=== PATIENT | female | born 2000 | race Caucasian/White ===

== ENCOUNTER 2019-06-11 02:11 | Emergency (ER) | payer OTHER, MEDICAID ==
[2019-06-11 02:40] LABS: Absolute Neutrophil Ct (ANC) 7.01 (1.4-6.9); BASOPHIL % 0.2 % (0.0-0.4); Basophil (Absolute #) 0.02 (0-0.4); Eosinophil % 1.1 % (0.00-5.0); Eosinophil (Absolute #) 0.11 (0-0.5); Hematocrit 40.4 % (35-47); Hemoglobin 13.8 gm/dl (12.0-16.0); Lymphocyte (Absolute #) 2.32 (1.0-4.6); Mean Cell Volume 81.1 fl (78-100); Mean Corpuscular Hemoglobin 27.7 pg (26-32); Mean Corpuscular Hgb Concent. 34.2 g/dl (32-36); Mean Platelet Volume 8.9 fl (6-9.5); Monocyte (Absolute #) 0.64 (0.0-1.3); Monocytes % 6.3 % (0.0-12.0); Neutrophil % 69.4 % (36.0-66.0); Platelet Count 284 K/mm3 (150-450); Red Blood Count 4.98 M/mm3 (4.1-5.4); Red Cell Distribution Width 13.4 % (11.5-14.0); White Blood Count 10.1 K/mm3 (4.0-10.5)
[2019-06-11 02:48] LABS: Appearance SLIGHTLY CLOUDY (CLEAR); Bilirubin NEGATIVE (NEGATIVE); Blood SMALL Ery/ul (0-5); Epithelial Cells RARE /HPF (FEW); Glucose NEGATIVE (NEGATIVE); Ketones NEGATIVE (NEGATIVE); Leukocyte Esterase TRACE (NEGATIVE); Mucus SLIGHT /HPF (NEGATIVE); Nitrite NEGATIVE (NEGATIVE); Protein,Urine Dip NEGATIVE (Negative); RBC 0-2 /HPF (0-2); Specific Gravity 1.014 (1.005-1.025); Urobilinogen NEGATIVE mg/dL (0-1)
--- NOTE | 2019-06-11 02:48 | ERPHSYRPT ---
- History of Present Illness Time Seen by Provider: 06/11/19 02:20 Source: police Exam Limitations: no limitations Patient Subjective Stated Complaint: Pt states, "I'm getting really frustrated, lots of stress: I don't make enough money, my dad is getting , my mom doesn't do shit and my boyfriend lost his job about a month ago". Triage Nursing Assessment: PT ARRIVED VIA POLICE, WILLINGLY, TO RM 3. PT ALERT AND ORIENTED X3, PLEASANT AND COOPERATIVE. PT DEPRESSED AND HAS ALOT OF STRESS GOING ON IN HER LIFE, HAD SUICIDAL IDEATIONS TONIGHT ([place] LUNGS CLEAR, HEART TONES REG, ABD SOFT WITH ACTIVE BSX4 QUAD, NON-TENDER. Physician History: As noted by INDER and 's Jasper - depressed - suicidal ideation - voiced plan - ID by Jasper. Allergies/Adverse Reactions: ibuprofen Adverse Reaction (Severe, Verified 06/11/19 02:34) INTESTINAL BLEEDING INTESTINAL BLEEDING Home Medications: Buspirone HCl [Buspar] 15 mg PO TIDPRN PRN 06/11/19 [History] Lisdexamfetamine Dimesylate [Vyvanse] 70 mg PO DAILY 06/11/19 [History] Trazodone HCl 50 mg PO QHS 06/11/19 [History] Vilazodone HCl [Viibryd] 40 mg PO DAILY 06/11/19 [History] Hx Tetanus, Diphtheria Vaccination/Date Given: Yes Hx Influenza Vaccination/Date Given: No Hx Pneumococcal Vaccination/Date Given: No Immunizations Up to Date: Yes - Past Medical History Pertinent Past Medical History: Yes Neurological History: Other ENT History: No Pertinent History Cardiac History: No Pertinent History Respiratory History: Asthma Endocrine Medical History: No Pertinent History Musculoskeletal History: No Pertinent History GI Medical History: GERD, Gallbladder Disease, Hemorrhoids History: No Pertinent History Psycho-Social History: Anxiety, Attention Deficit Disorder, Depression, Other Female Reproductive Disorders: No Pertinent History Other Medical History: PTSD, DISASSOCIATIVE DISORDER - Past Surgical History Past Surgical History: Yes Neuro Surgical History: No Pertinent History Cardiac: No Pertinent History Respiratory: No Pertinent History Gastrointestinal: Cholecystectomy Genitourinary: No Pertinent History Musculoskeletal: No Pertinent History Female Surgical History: No Pertinent History Other Surgical History: 2 COLONOSCOPY. 1 ENDOSCOPY - Social History Smoking Status: Current every day smoker How long have you smoked: 5 yrs Exposure to second hand smoke: No Drug Use: none Patient Lives Alone: No - Female History Hx Last Menstrual Period: 06/08/19 Hx Now: No - Nursing Vital Signs Nursing Vital Signs: Initial Vital Signs Temperature 99.3 F 06/11/19 02:13 Pulse Rate 115 H 06/11/19 02:13 Respiratory Rate 17 06/11/19 02:13 Blood Pressure 151/94 06/11/19 02:13 O2 Sat by Pulse Oximetry 100 06/11/19 02:13 Pain Scale Pain Intensity 0 - Physical Exam General Appearance: no apparent distress Eyes, Ears, Nose, Throat Exam: normal ENT inspection Neck Exam: normal inspection Respiratory Exam: normal breath sounds, lungs clear, airway intact, No respiratory distress Cardiovascular Exam: regular rate/rhythm, normal heart sounds, normal peripheral pulses Gastrointestinal/Abdominal Exam: soft Extremities Exam: normal inspection, normal range of motion Current Suicidality: other (stated via text to bofriend and verbally to Jasper) Neurological Exam: alert, normal mood/affect, calm, oriented x 3 Appearance: appropriate appearance, appropriate insight Behavior/Eye Contact/Speech: alert & cooperative, cooperative, good eye contact Thoughts/Hallucinations: normal thought pattern, no apparent hallucination Skin Exam: normal color, warm, dry SpO2 Interpretation: normal SpO2: 100 O2 Delivery: Room Air Ordered Tests: Active Orders 24 hr Category Date Time Status IV Insertion STAT Care 06/11/19 02:18 Active CHEST 1 VIEW (PORTABLE) Stat Exams 06/11/19 02:20 Taken ACETAMINOPHEN Stat Lab 06/11/19 02:36 Completed CBC W DIFF Stat Lab 06/11/19 02:36 Completed CMP Stat Lab 06/11/19 02:36 Completed CULTURE,URINE Stat Lab 06/11/19 02:36 Received ETHYL ALCOHOL Stat Lab 06/11/19 02:36 Completed HCG QUALITATIVE,SERUM Stat Lab 06/11/19 02:36 Completed SALICYLATE Stat Lab 06/11/19 02:36 Completed UA W/RFX UR CULTURE Stat Lab 06/11/19 02:36 Completed Urine Triage Profile Stat Lab 06/11/19 02:36 Completed Medication Summary Generic Name Dose Route Start Last Admin Trade Name Freq PRN Reason Stop Dose Admin Ciprofloxacin 500 mg 06/11/19 10:00 06/11/19 04:03 Cipro 500 Mg PO 07/11/19 09:59 500 mg BID AGNES Administration Lab/Rad Data: Laboratory Result Diagrams 06/11/19 02:36 06/11/19 02:36 Laboratory Results 06/11/19 06/11/19 06/11/19 Range/Units 02:36 02:36 02:36 WBC (4.0-10.5) K/mm3 RBC (4.1-5.4) M/mm3 Hgb (12.0-16.0) gm/dl Hct (35-47) % MCV (78-100) fl MCH (26-32) pg MCHC (32-36) g/dl RDW (11.5-14.0) % Plt Count (150-450) K/mm3 MPV (6-9.5) fl Gran % (36.0-66.0) % Eos # (Auto) (0-0.5) Absolute Lymphs (auto) (1.0-4.6) Absolute Monos (auto) (0.0-1.3) Lymphocytes % (24.0-44.0) % Monocytes % (0.0-12.0) % Eosinophils % (0.00-5.0) % Basophils % (0.0-0.4) % Absolute Granulocytes (1.4-6.9) Basophils # (0-0.4) Sodium (137-145) mmol/L Potassium (3.5-5.1) mmol/L Chloride (98-107) mmol/L Carbon Dioxide (22-30) mmol/L Anion Gap (5-15) MEQ/L BUN (7-17) mg/dL Creatinine (0.52-1.04) mg/dL Estimated GFR ML/MIN Glucose (74-106) mg/dL Calcium (8.4-10.2) mg/dL Total Bilirubin (0.2-1.3) mg/dL AST (14-36) U/L ALT (0-35) U/L Alkaline Phosphatase (38-126) U/L Serum Total Protein (6.3-8.2) g/dL Albumin (3.5-5.0) g/dL Serum , Qual NEGATIVE (Negative) Urine Color YELLOW (YELLOW) Urine Appearance SLIGHTLY CLOUDY (CLEAR) Urine pH 7.0 (5-6) Ur Specific [place] 1.014 (1.005-1.025) Urine Protein NEGATIVE (Negative) Urine Ketones NEGATIVE (NEGATIVE) Urine Blood SMALL (0-5) Rene/ul Urine Nitrite NEGATIVE (NEGATIVE) Urine Bilirubin NEGATIVE (NEGATIVE) Urine Urobilinogen NEGATIVE (0-1) mg/dL Ur Leukocyte Esterase TRACE (NEGATIVE) Urine WBC (Auto) 6-10 (0-5) /HPF Urine RBC (Auto) 0-2 (0-2) /HPF U Epithel Cells (Auto) RARE (FEW) /HPF Urine Bacteria (Auto) NONE (NEGATIVE) /HPF Urine Mucus (Auto) SLIGHT (NEGATIVE) /HPF Urine Culture Reflexed YES (NO) Urine Glucose NEGATIVE (NEGATIVE) mg/dL Salicylates (2-20) mg/dL Urine Opiates Level NEGATIVE (NEGATIVE) Ur Methadone NEGATIVE (NEGATIVE) Acetaminophen (10-30) ug/ml Urine Barbiturates NEGATIVE (NEGATIVE) Ur Phencyclidine (PCP) NEGATIVE (NEGATIVE) Urine Amphetamine NEGATIVE (NEGATIVE) U Benzodiazepine Level NEGATIVE (NEGATIVE) Urine Cocaine NEGATIVE (NEGATIVE) Urine Marijuana (THC) NEGATIVE (NEGATIVE) Ethyl Alcohol (0-10) mg/dL 06/11/19 06/11/19 Range/Units 02:36 02:36 WBC 10.1 (4.0-10.5) K/mm3 RBC 4.98 (4.1-5.4) M/mm3 Hgb 13.8 (12.0-16.0) gm/dl Hct 40.4 (35-47) % MCV 81.1 (78-100) fl MCH 27.7 (26-32) pg MCHC 34.2 (32-36) g/dl RDW 13.4 (11.5-14.0) % Plt Count 284 (150-450) K/mm3 MPV 8.9 (6-9.5) fl Gran % 69.4 H (36.0-66.0) % Eos # (Auto) 0.11 (0-0.5) Absolute Lymphs (auto) 2.32 (1.0-4.6) Absolute Monos (auto) 0.64 (0.0-1.3) Lymphocytes % 23.0 L (24.0-44.0) % Monocytes % 6.3 (0.0-12.0) % Eosinophils % 1.1 (0.00-5.0) % Basophils % 0.2 (0.0-0.4) % Absolute Granulocytes 7.01 H (1.4-6.9) Basophils # 0.02 (0-0.4) Sodium 142 (137-145) mmol/L Potassium 3.6 (3.5-5.1) mmol/L Chloride 104 (98-107) mmol/L Carbon Dioxide 26 (22-30) mmol/L Anion Gap 16.0 H (5-15) MEQ/L BUN 12 (7-17) mg/dL Creatinine 0.64 (0.52-1.04) mg/dL Estimated GFR > 60.0 ML/MIN Glucose 110 H (74-106) mg/dL Calcium 9.9 (8.4-10.2) mg/dL Total Bilirubin 0.30 (0.2-1.3) mg/dL AST 23 (14-36) U/L ALT 23 (0-35) U/L Alkaline Phosphatase 82 (38-126) U/L Serum Total Protein 8.0 (6.3-8.2) g/dL Albumin 4.6 (3.5-5.0) g/dL Serum , Qual (Negative) Urine Color (YELLOW) Urine Appearance (CLEAR) Urine pH (5-6) Ur Specific [place] (1.005-1.025) Urine Protein (Negative) Urine Ketones (NEGATIVE) Urine Blood (0-5) Rene/ul Urine Nitrite (NEGATIVE) Urine Bilirubin (NEGATIVE) Urine Urobilinogen (0-1) mg/dL Ur Leukocyte Esterase (NEGATIVE) Urine WBC (Auto) (0-5) /HPF Urine RBC (Auto) (0-2) /HPF U Epithel Cells (Auto) (FEW) /HPF Urine Bacteria (Auto) (NEGATIVE) /HPF Urine Mucus (Auto) (NEGATIVE) /HPF Urine Culture Reflexed (NO) Urine Glucose (NEGATIVE) mg/dL Salicylates < 1.0 L (2-20) mg/dL Urine Opiates Level (NEGATIVE) Ur Methadone (NEGATIVE) Acetaminophen < 10 L (10-30) ug/ml Urine Barbiturates (NEGATIVE) Ur Phencyclidine (PCP) (NEGATIVE) Urine Amphetamine (NEGATIVE) U Benzodiazepine Level (NEGATIVE) Urine Cocaine (NEGATIVE) Urine Marijuana (THC) (NEGATIVE) Ethyl Alcohol < 10 (0-10) mg/dL - Progress Progress Note: 06/11/19 03:55 Discussed apparent UTI with patient - no history of UTIs; no allergic to an ABX. - Departure Departure Disposition: Transfer Clinical Impression: Suicidal behavior Qualifiers: Attempted self-injury: without attempted self-injury Qualified Code(s): R46.89 - Other symptoms and signs involving appearance and behavior Condition: Stable Critical Care Time: Yes Critical Care Time(excluding separately billable procedures): Critical 30-74 mins (Eval of clinical/psych picture/behavior; labs and placement plan) Referrals: Provider,Unknown [Primary Care Provider] - Prescriptions: Ciprofloxacin HCl [Cipro] 500 mg PO BID 7 Days #14 tablet
[2019-06-11 02:51] LABS: ALBUMIN 4.6 g/dL (3.5-5.0); ALKALINE PHOSPHATASE 82 U/L (38-126); BLOOD UREA NITROGEN 12 mg/dL (7-17); CHLORIDE 104 mmol/L (98-107); Calcium 9.9 mg/dL (8.4-10.2); Carbon Dioxide 26 mmol/L (22-30); Creatinine 1 0.64 mg/dL (0.52-1.04); Glucose 110 mg/dL (74-106); Potassium 3.6 mmol/L (3.5-5.1); SGOT/AST 23 U/L (14-36); SGPT/ALT 23 U/L (0-35); SODIUM 142 mmol/L (137-145)
[2019-06-11 02:52] LABS: ACETAMINOPHEN < 10 ug/ml (10-30); ETHYL ALCOHOL < 10 mg/dL (0-10); SALICYLATE < 1.0 mg/dL (2-20)
[2019-06-11 02:57] LABS: Amphetamine,Urine NEGATIVE (NEGATIVE); Barbiturate,Urine NEGATIVE (NEGATIVE); Benzodiazepine,Urine NEGATIVE (NEGATIVE); Cocaine,Urine NEGATIVE (NEGATIVE); Methadone,Urine NEGATIVE (NEGATIVE); Opiate,Urine NEGATIVE (NEGATIVE); PCP,Urine NEGATIVE (NEGATIVE); THC,Urine NEGATIVE (NEGATIVE)
[2019-06-11] MEDS ORDERED: Cipro 500 MG ONE (04:02)
[2019-06-11] MEDS: Cipro 500 MG PO SCH (04:03)
[2019-06-11 05:04] VITALS: BP 117/70; PULSE 92
[2019-06-11 05:35] VITALS: O2SAT 100
--- NOTE | 2019-06-11 09:00 | XRAY ---
Indication: Medical clearance. Comparison: None Portable chest demonstrates normal heart, lungs, and bony thorax with a few incidental tiny calcified granulomas.
== END 2019-06-11 05:50 | disposition short-term general hospital (02) ==
LOC: ED 02:11
DX: F32.9 Major depressive disorder, single episode, unspecified (principal); F41.9 Anxiety disorder, unspecified; R45.851 Suicidal ideations
CPT/HCPCS: 80053; 80307; 81001; 81025; 85025; 87086; 99291; G0481; 36000; 36415; 71045; 99285; A9270-GY; G0480

== ENCOUNTER 2021-01-14 01:26 | Emergency (ER) | payer BC, OTHER ==
[2021-01-14 02:28] LABS: Appearance CLEAR (CLEAR); Bilirubin NEGATIVE (NEGATIVE); Blood NEGATIVE Ery/ul (0-5); Epithelial Cells RARE /HPF (FEW); Glucose NEGATIVE (NEGATIVE); Ketones TRACE (NEGATIVE); Leukocyte Esterase NEGATIVE (NEGATIVE); Mucus SLIGHT /HPF (NEGATIVE); Nitrite NEGATIVE (NEGATIVE); Protein,Urine Dip NEGATIVE (Negative); Specific Gravity 1.019 (1.005-1.025); Urobilinogen NEGATIVE mg/dL (0-1)
[2021-01-14 02:29] LABS: Absolute Neutrophil Ct (ANC) 8.42 (1.4-6.9); BASOPHIL % 0.1 % (0.0-0.4); Basophil (Absolute #) 0.01 (0-0.4); Eosinophil % 0.7 % (0.00-5.0); Eosinophil (Absolute #) 0.08 (0-0.5); Hematocrit 40.5 % (35-47); Lymphocyte (Absolute #) 2.04 (1.0-4.6); Lymphocytes % 18.1 % (24.0-44.0); Mean Cell Volume 84.2 fl (78-100); Mean Corpuscular Hgb Concent. 32.1 g/dl (32-36); Mean Platelet Volume 9.7 fl (7.5-11.0); Monocyte (Absolute #) 0.69 (0.0-1.3); Monocytes % 6.1 % (0.0-12.0); Platelet Count 226 K/mm3 (150-450); Red Blood Count 4.81 M/mm3 (4.1-5.4); Red Cell Distribution Width 14.1 % (11.5-14.0); White Blood Count 11.2 K/mm3 (4.0-10.5)
[2021-01-14 02:33] LABS: ACETAMINOPHEN < 10 ug/ml (10-30); ALBUMIN 4.4 g/dL (3.5-5.0); ALKALINE PHOSPHATASE 69 U/L (38-126); ANION GAP 15.1 MEQ/L (5-15); BLOOD UREA NITROGEN 9 mg/dL (7-17); CHLORIDE 105 mmol/L (98-107); Calcium 9.4 mg/dL (8.4-10.2); Carbon Dioxide 22 mmol/L (22-30); Creatinine 1 0.69 mg/dL (0.52-1.04); EST GLOMERULAR FILTRATION RATE > 60.0 ML/MIN; ETHYL ALCOHOL < 10 mg/dL (0-10); Glucose 94 mg/dL (74-106); Potassium 3.4 mmol/L (3.5-5.1); SGOT/AST 32 U/L (14-36); SGPT/ALT 51 U/L (0-35); SODIUM 139 mmol/L (137-145); Total Protein 7.1 g/dL (6.3-8.2)
[2021-01-14 02:41] LABS: Amphetamine,Urine NEGATIVE (NEGATIVE); Barbiturate,Urine NEGATIVE (NEGATIVE); Benzodiazepine,Urine NEGATIVE (NEGATIVE); Cocaine,Urine NEGATIVE (NEGATIVE); Methadone,Urine NEGATIVE (NEGATIVE); Opiate,Urine NEGATIVE (NEGATIVE); PCP,Urine NEGATIVE (NEGATIVE); THC,Urine POSITIVE (NEGATIVE)
--- NOTE | 2021-01-14 03:11 | ERPHSYRPT ---
- History of Present Illness Time Seen by Provider: 01/14/21 01:52 Source: patient, police Exam Limitations: no limitations Patient Subjective Stated Complaint: Patient states " I was told if I came to ER willingly and talk to someone I would be able to go home.". Police showed up to ER and gave report on patient. Police stated he was called to patient's residence because he had gotten a phone call from her ex-boyfriend mother that stated patient was sending her son text messages that she was going to kill herself and she sent a picture message of herself with gun in mouth. Police stated yes they told her it would be better to go willingly. Patient is ED'D at this time. Triage Nursing Assessment: Patient arrived to ED willingly. Patient A/O times 4. Patient follows instructions without difficulty. Patient lungs clear bilateral A/P throughout. Patient denies chest pain. Patient denies SOB. Patient cap refill < 3 seconds. No acute S/S of respiratory distress noted. Patient appears slightly angered upon arrival and told RN she was her because she was told to come. Patient stated she was told if she came willingly and talked with someone she would be able to go home. Patient stated she was fine now and she stated she had sent couple of text messages stating she was just having a hard tme. Patient denies sending text meassges of wanting to commit suicide and denies sending picture message of gun in her mouth. Patient stated she is being tested for Borderline Personality Disorder. Patient noted to have tried to kill herself in the past. According to Police patient overdosed about a month ago in [facility] R/T break up with boyfriend. RN noted patient with scars to bilateral forearms R.T cutting herself in which patient states she did that when she was a teenager and she has grown out of that. + BS times 4 quads. ABD soft, round, non- distended. Patient denies any pain or discomfort upon palpitation. RN collected urine. Urine yellow in color with no odor. Patient denies any pain or burning upon urination. Patient moves all extremities without difficulty. Bilaetral pupils brisk and reactive. Patient denies any alcohol or drug abuse. + Pedal and radial pulses bilateral. Patient denies any pain or discomfort. Physician History: 20 years old female with history of anxiety depression is brought in the ER by PD with chief complaint of suicidal ideations/gestures prior to arrival. Patient reports he has been dealing with a lot of stress currently although she denies any suicidal ideations while in the ER but does report having them off and on. Denies any homicidal ideations. Denies ideas of hopelessness/helplessness. [employer] present in the picture to her ex-boyfriend with a gun in her mouth. Denies any drug or alcohol use. Timing/Duration: today Severity of Symptoms-Max: moderate Severity of Symptoms-Current: moderate Context related to: significant other, living circumstances Suicidal thoughts: gesture, specific plan Associated Symptoms: anxiety, suicidal ideation Previous symptoms: same symptoms as today Allergies/Adverse Reactions: ibuprofen Adverse Reaction (Severe, Verified 01/14/21 01:51) INTESTINAL BLEEDING INTESTINAL BLEEDING Home Medications: Buspirone HCl [Buspar] 15 mg PO TIDPRN PRN 06/11/19 [History] Lisdexamfetamine Dimesylate [Vyvanse] 70 mg PO DAILY 06/11/19 [History] Trazodone HCl 50 mg PO QHS 06/11/19 [History] Vilazodone HCl [Viibryd] 40 mg PO DAILY 06/11/19 [History] Hx Tetanus, Diphtheria Vaccination/Date Given: Yes Hx Influenza Vaccination/Date Given: No Hx Pneumococcal Vaccination/Date Given: No Immunizations Up to Date: Yes Travel Risk - International Travel Have you traveled outside of the country in past 3 weeks: No - Coronavirus Screening Are you exhibiting any of the following symptoms?: No Close contact with a COVID-19 positive Pt in past 14-21 Days: No - Vaccine Status Have you recieved a Covid-19 vaccination: No - Past Medical History Pertinent Past Medical History: Yes Neurological History: Other ENT History: No Pertinent History Cardiac History: No Pertinent History Respiratory History: Asthma Endocrine Medical History: No Pertinent History Musculoskeletal History: No Pertinent History GI Medical History: GERD, Gallbladder Disease, Hemorrhoids History: No Pertinent History Psycho-Social History: Anxiety, Attention Deficit Disorder, Depression, Other Female Reproductive Disorders: No Pertinent History Other Medical History: PTSD, DISASSOCIATIVE DISORDER - Past Surgical History Past Surgical History: Yes Neuro Surgical History: No Pertinent History Cardiac: No Pertinent History Respiratory: No Pertinent History Gastrointestinal: Cholecystectomy Genitourinary: No Pertinent History Musculoskeletal: No Pertinent History Female Surgical History: No Pertinent History Other Surgical History: 2 COLONOSCOPY. 1 ENDOSCOPY - Social History Smoking Status: Current every day smoker How long have you smoked: 6 years Exposure to second hand smoke: Yes Drug Use: marijuana Patient Lives Alone: Yes - Female History Hx Last Menstrual Period: 01/14/21 Hx Now: No - Review of Systems Constitutional: No Symptoms Eyes: No Symptoms Ears, Nose, & Throat: No Symptoms Respiratory: No Symptoms Cardiac: No Symptoms Abdominal/Gastrointestinal: No Symptoms Genitourinary Symptoms: No Symptoms Musculoskeletal: No Symptoms, Deformity Skin: No Symptoms Neurological: No Symptoms Psychological: Anxiety, Depression, Suicidal Ideations Endocrine: No Symptoms Hematologic/Lymphatic: No Symptoms Immunological/Allergic: No Symptoms - Nursing Vital Signs Nursing Vital Signs: Initial Vital Signs Temperature 97.0 F 01/14/21 01:43 Pulse Rate 101 H 01/14/21 01:43 Respiratory Rate 18 01/14/21 01:43 Blood Pressure 128/95 01/14/21 01:43 O2 Sat by Pulse Oximetry 99 01/14/21 01:43 Pain Scale Pain Intensity 0 - Physical Exam General Appearance: no apparent distress Eyes, Ears, Nose, Throat Exam: normal ENT inspection, TMs normal, pharynx normal Neck Exam: normal inspection, non-tender, supple, full range of motion Respiratory Exam: normal breath sounds, lungs clear Cardiovascular Exam: regular rate/rhythm, normal heart sounds Gastrointestinal/Abdominal Exam: soft, normal bowel sounds, No tenderness Extremities Exam: normal inspection, normal range of motion, evidence of injury Current Suicidality: denies suicide plan Neurological Exam: alert, calm, regulator pin inserter II-XII nml as tested, oriented x 3, flat, No normal mood/affect (Flat affect) Appearance: appropriate appearance, appropriate insight, no memory impairment Behavior/Eye Contact/Speech: alert & cooperative, cooperative, good eye contact, normal speech Thoughts/Hallucinations: normal thought pattern, no apparent hallucination Skin Exam: normal color SpO2 Interpretation: normal SpO2: 99 O2 Delivery: Room Air Lab/Rad Data: Laboratory Result Diagrams 01/14/21 01:59 01/14/21 01:59 Laboratory Results 01/14/21 01/14/21 01/14/21 Range/Units 04:21 01:59 01:59 WBC (4.0-10.5) K/mm3 RBC (4.1-5.4) M/mm3 Hgb (12.0-16.0) gm/dl Hct (35-47) % MCV (78-100) fl MCH (26-32) pg MCHC (32-36) g/dl RDW (11.5-14.0) % Plt Count (150-450) K/mm3 MPV (7.5-11.0) fl Gran % (36.0-66.0) % Eos # (Auto) (0-0.5) Absolute Lymphs (auto) (1.0-4.6) Absolute Monos (auto) (0.0-1.3) Lymphocytes % (24.0-44.0) % Monocytes % (0.0-12.0) % Eosinophils % (0.00-5.0) % Basophils % (0.0-0.4) % Absolute Granulocytes (1.4-6.9) Basophils # (0-0.4) Sodium (137-145) mmol/L Potassium (3.5-5.1) mmol/L Chloride (98-107) mmol/L Carbon Dioxide (22-30) mmol/L Anion Gap (5-15) MEQ/L BUN (7-17) mg/dL Creatinine (0.52-1.04) mg/dL Estimated GFR ML/MIN Glucose (74-106) mg/dL Calcium (8.4-10.2) mg/dL Total Bilirubin (0.2-1.3) mg/dL AST (14-36) U/L ALT (0-35) U/L Alkaline Phosphatase (38-126) U/L Serum Total Protein (6.3-8.2) g/dL Albumin (3.5-5.0) g/dL Urine Color YELLOW (YELLOW) Urine Appearance CLEAR (CLEAR) Urine pH 6.0 (5-6) Ur Specific [place] 1.019 (1.005-1.025) Urine Protein NEGATIVE (Negative) Urine Ketones TRACE (NEGATIVE) Urine Blood NEGATIVE (0-5) Rene/ul Urine Nitrite NEGATIVE (NEGATIVE) Urine Bilirubin NEGATIVE (NEGATIVE) Urine Urobilinogen NEGATIVE (0-1) mg/dL Ur Leukocyte Esterase NEGATIVE (NEGATIVE) Urine WBC (Auto) NONE (0-5) /HPF Urine RBC (Auto) NONE (0-2) /HPF U Epithel Cells (Auto) RARE (FEW) /HPF Urine Bacteria (Auto) NONE (NEGATIVE) /HPF Urine Mucus (Auto) SLIGHT (NEGATIVE) /HPF Urine Culture Reflexed NO (NO) Urine Glucose NEGATIVE (NEGATIVE) mg/dL Urine HCG, Qual (Negative) Urine Opiates Level NEGATIVE (NEGATIVE) Ur Methadone NEGATIVE (NEGATIVE) Acetaminophen (10-30) ug/ml Urine Barbiturates NEGATIVE (NEGATIVE) Ur Phencyclidine (PCP) NEGATIVE (NEGATIVE) Urine Amphetamine NEGATIVE (NEGATIVE) U Benzodiazepine Level NEGATIVE (NEGATIVE) Urine Cocaine NEGATIVE (NEGATIVE) Urine Marijuana (THC) POSITIVE (NEGATIVE) Ethyl Alcohol (0-10) mg/dL SARS-CoV-2 Ag (Rapid) NEGATIVE (NEGATIVE) 01/14/21 01/14/21 01/14/21 Range/Units 01:59 01:59 01:59 WBC 11.2 H (4.0-10.5) K/mm3 RBC 4.81 (4.1-5.4) M/mm3 Hgb 13.0 (12.0-16.0) gm/dl Hct 40.5 (35-47) % MCV 84.2 (78-100) fl MCH 27.0 (26-32) pg MCHC 32.1 (32-36) g/dl RDW 14.1 H (11.5-14.0) % Plt Count 226 (150-450) K/mm3 MPV 9.7 (7.5-11.0) fl Gran % 75.0 H (36.0-66.0) % Eos # (Auto) 0.08 (0-0.5) Absolute Lymphs (auto) 2.04 (1.0-4.6) Absolute Monos (auto) 0.69 (0.0-1.3) Lymphocytes % 18.1 L (24.0-44.0) % Monocytes % 6.1 (0.0-12.0) % Eosinophils % 0.7 (0.00-5.0) % Basophils % 0.1 (0.0-0.4) % Absolute Granulocytes 8.42 H (1.4-6.9) Basophils # 0.01 (0-0.4) Sodium 139 (137-145) mmol/L Potassium 3.4 L (3.5-5.1) mmol/L Chloride 105 (98-107) mmol/L Carbon Dioxide 22 (22-30) mmol/L Anion Gap 15.1 H (5-15) MEQ/L BUN 9 (7-17) mg/dL Creatinine 0.69 (0.52-1.04) mg/dL Estimated GFR > 60.0 ML/MIN Glucose 94 (74-106) mg/dL Calcium 9.4 (8.4-10.2) mg/dL Total Bilirubin 0.50 (0.2-1.3) mg/dL AST 32 (14-36) U/L ALT 51 H (0-35) U/L Alkaline Phosphatase 69 (38-126) U/L Serum Total Protein 7.1 (6.3-8.2) g/dL Albumin 4.4 (3.5-5.0) g/dL Urine Color (YELLOW) Urine Appearance (CLEAR) Urine pH (5-6) Ur Specific [place] (1.005-1.025) Urine Protein (Negative) Urine Ketones (NEGATIVE) Urine Blood (0-5) Rene/ul Urine Nitrite (NEGATIVE) Urine Bilirubin (NEGATIVE) Urine Urobilinogen (0-1) mg/dL Ur Leukocyte Esterase (NEGATIVE) Urine WBC (Auto) (0-5) /HPF Urine RBC (Auto) (0-2) /HPF U Epithel Cells (Auto) (FEW) /HPF Urine Bacteria (Auto) (NEGATIVE) /HPF Urine Mucus (Auto) (NEGATIVE) /HPF Urine Culture Reflexed (NO) Urine Glucose (NEGATIVE) mg/dL Urine HCG, Qual NEGATIVE (Negative) Urine Opiates Level (NEGATIVE) Ur Methadone (NEGATIVE) Acetaminophen < 10 L (10-30) ug/ml Urine Barbiturates (NEGATIVE) Ur Phencyclidine (PCP) (NEGATIVE) Urine Amphetamine (NEGATIVE) U Benzodiazepine Level (NEGATIVE) Urine Cocaine (NEGATIVE) Urine Marijuana (THC) (NEGATIVE) Ethyl Alcohol < 10 (0-10) mg/dL SARS-CoV-2 Ag (Rapid) (NEGATIVE) - Progress Progress: unchanged Progress Note: She is medically cleared, behavioral health evaluation would be obtained. [facility] has evaluated patient and is appropriate for admission to behavioral health facility and patient will be transferred. Discussed with : Other Counseled pt/family regarding: lab results, diagnosis - Departure Departure Disposition: Transfer Clinical Impression: Suicidal ideations Condition: Good Critical Care Time: No Referrals: CAROL,GERA, MD [Primary Care Provider] -
[2021-01-14 04:38] LABS: COVID AG -BINAX NOW RAPID TEST NEGATIVE (NEGATIVE)
[2021-01-14 05:02] VITALS: BP 95/52; PULSE 75
[2021-01-20 20:58] VITALS: O2SAT 99
== END 2021-01-14 05:45 | disposition short-term general hospital (02) ==
LOC: ED 01:26
DX: R45.851 Suicidal ideations (principal); F41.8 Other specified anxiety disorders
CPT/HCPCS: 36000; 36415; 80053; 80307; 81001; 84703; 85025; 93005; 99000; 99285; G0480